=== PATIENT | female | born 1975 | race Hispanic/Latino ===

== ENCOUNTER 2019-08-12 19:33 | Emergency (ER) | payer SELFPAY ==
[~2019-08-12] VITALS: Ht 152.4 cm; Wt 70.2 kg
[~2019-08-12 19:33] MED LIST: ACETAMIN500 M2 PO; ATIVAN0.5 MG PO; GLUCOPHAGE500 MG PO; METFORMIN500 MG PO; NAPROSYN500 MG PO; NEXIUM40 MG PO; THERAFLU; VENTOLIN HFA IN; XANAX0.25 MG PO; ZOFRAN4 MG/TAB PO
[2019-08-12] MEDS ORDERED: MEDDOSEPAK PO (21:14)
[2019-08-12] MEDS ORDERED: AMOXICILLIN875 MG PO (21:14)
[2019-08-12 22:31] VITALS: BP 125/73
== END 2019-08-12 22:24 | disposition home or self-care (01) | DRG 153 ==
LOC: ED 19:33
DX: J03.90 Acute tonsillitis, unspecified (principal); J02.9 Acute pharyngitis, unspecified; R50.9 Fever, unspecified; R11.2 Nausea with vomiting, unspecified
CPT/HCPCS: J0561

== ENCOUNTER 2019-08-30 04:36 | Emergency (ER) | payer SELFPAY ==
[~2019-08-30] VITALS: Ht 152.4 cm; Wt 66.0 kg
[~2019-08-30 04:36] MED LIST changes: +AMOXICILLIN875 MG PO; +MEDDOSEPAK PO
[2019-08-30 05:44] LABS: HEMATOCRIT 39.4 % (37.0-47.0); HEMOGLOBIN 13.1 g/dl (12.0-16.0); IMMATURE GRANULOCYTES 0.3 % (0.0-5.0); MEAN CELL VOLUME 88.9 fL CALC (80.0-100.0); MEAN CORPUSCULAR HGB 29.6 pG CALC (26.0-32.0); MEAN CORPUSCULAR HGB CONC 33.2 g/L CALC (32.0-36.0); NEUT# 6.36 thou/uL (2.00-7.15); RED BLOOD COUNT 4.43 mill/uL (4.20-5.60); RED CELL DISTRI WIDTH 11.7 % (11.5-15.5)
[2019-08-30 06:00] LABS: ALBUMIN 4.3 g/dL (3.2-5.0); ALKALINE PHOSPHATASE 157 u/l (38-126); ANION GAP 16 (6-22 (CALC)); BILIRUBIN, TOTAL 0.4 mg/dL (0.0-1.4); BUN 7 mg/dL (7-17); BUN/CREATININE RATIO 18 (12-20 (CALC)); CARBON DIOXIDE 25 mmol/l (22-30); CHLORIDE 103 mmol/l (95-108); CREATININE 0.4 mg/dL (0.5-1.0); GFR > 60 ML/MIN (>=60 (CALC)); GFR FOR AFR.AMER. > 60 ML/MIN (>=60 (CALC)); POTASSIUM 4.2 mmol/l (3.5-5.1); SGOT/AST 30 u/l (14-36); SODIUM 140 mmol/l (137-146); TOTAL PROTEIN 8.5 g/dL (6.3-8.2)
[2019-08-30] MEDS ORDERED: TESSALON PER100 MG PO (06:54)
[2019-08-30 07:08] VITALS: BP 125/70
== END 2019-08-30 07:08 | disposition home or self-care (01) | DRG 866 ==
LOC: ED 04:36
PROVIDERS: Family Medicine
DX: B34.9 Viral infection, unspecified (principal); E11.9 Type 2 diabetes mellitus without complications; J45.909 Unspecified asthma, uncomplicated; Z79.84 Long term (current) use of oral hypoglycemic drugs